=== PATIENT | male | born 1985 | race Caucasian/White ===

== ENCOUNTER 2016-09-30 13:21 | Emergency (ER) | payer BC, OTHER ==
[2016-09-30 14:08] VITALS: BP 129/84
--- NOTE | 2016-09-30 14:35 | UC ---
Knee Pain HPI - HPI Summary HPI Summary: 30 yo male injured left knee yesterday hyper extended it and twisted felt like patella dislocated and popped back in able to ambulate - History of Current Complaint Chief Complaint: UCUpperExtremity Stated Complaint: LEFT KNEE PAIN Time Seen by Provider: 09/30/16 14:24 Hx Obtained From: Patient Onset/Duration: Sudden Onset Severity Initially: Moderate Severity Currently: Moderate Location Of Injury: left knee Pain Intensity: 6 Pain Scale Used: 0-10 Numeric Character: Dull, Aching Aggravating Factor(s): Movement, Weight Bearing Alleviating Factor(s): Rest Associated Signs And Symptoms: Positive: Swelling Able to Bear Weight: Yes - Allergies/Home Medications Allergies/Adverse Reactions: Allergies Allergy/AdvReac Type Severity Reaction Status Date / Time Cefaclor [From [facility]] Allergy Unknown Unknown Verified 09/30/16 13:55 Reaction Details Home Medications: Home Medications Ibuprofen TAB* [Advil TAB*] 600 mg PO Q6H PRN 09/30/16 [History Confirmed ] Melatonin 3 mg PO BEDTIME PRN 09/30/16 [History Confirmed 09/30/16] hydrOXYzine HCL TAB* [Atarax 25 MG TAB*] 25 mg PO BEDTIME PRN 09/30/16 [History Confirmed 09/30/16] PMH/Surg Hx/FS Hx/Imm Hx Previously Healthy: Yes Endocrine History Of: Denies: Diabetes, Thyroid Disease, Hyperthyroidism, Hypothyroidism, Dyslipidemia Cardiovascular History Of: Denies: Cardiac Disorders, Hypertension, Pacemaker/ICD, Myocardial Infarction , Congestive Heart Failure, Atrial Fibrillation, Deep Vein Thrombosis, Bleeding Disorders Respiratory History Of: Denies: COPD, Asthma, Bronchitis, Pneumonia, Pulmonary Embolism GI/ History Of: Denies: Gastroesophageal Reflux, Ulcer, Gastrointestinal Bleed, Gall Bladder Disease, Kidney Stones, Diverticulitis, Renal Disease, Urosepsis Neurological History Of: Denies: TIA, CVA, Dementia, Seizures, Migraine Psychological History Of: Denies: Anxiety, Depression, Bipolar Disorder, Schizophrenia, Post Traumatic Stress Disorder Cancer History Of: Denies: Lung Cancer, Colorectal Cancer, Breast Cancer, Prostate Cancer, Cervical Cancer Other History Of: Negative For: HIV, Hepatitis B, Hepatitis C - Surgical History Surgical History: None Surgery Procedure, Year, and Place: wisdom teeth removal - Family History Known Family History: Negative: Cardiac Disease, Hypertension, Diabetes - Social History Alcohol Use: Occasionally Substance Use Type: None Smoking Status (MU): Never Smoked Tobacco Type: Smokeless Tobacco Amount Used/How Often: CHEWS Length of Time of Smoking/Using Tobacco: 10 YRS - Immunization History Most Recent Influenza Vaccination: Fall 2014 Most Recent Tetanus Shot: UNKNOWN Review of Systems Constitutional: Negative Skin: Negative Eyes: Negative ENT: Negative Respiratory: Negative Cardiovascular: Negative Gastrointestinal: Negative Genitourinary: Negative Motor: Negative Neurovascular: Negative Musculoskeletal: Arthralgia Neurological: Negative Psychological: Negative All Other Systems Reviewed And Are Negative: Yes Physical Exam Triage Information Reviewed: Yes Appearance: Well-Appearing, No Pain Distress, Well-Nourished Vital Signs: Initial Vital Signs Temp 98.5 F 09/30/16 13:45 Pulse 59 09/30/16 13:45 Resp 18 09/30/16 13:45 BP 129/84 09/30/16 13:45 Pulse Ox 100 09/30/16 13:45 Vital Signs Reviewed: Yes Eyes: Positive: Conjunctiva Clear ENT: Positive: Hearing grossly normal. Negative: Nasal congestion, Nasal drainage, Trismus, Muffled/hoarse voice Neck: Positive: Supple Respiratory: Positive: Lungs clear, Normal breath sounds, No respiratory distress Cardiovascular: Positive: RRR, No Murmur, Pulses Normal Musculoskeletal: Positive: Other: - see image Neurological: Positive: Alert, Muscle Tone Normal Psychological Exam: Normal Skin Exam: Normal Knee Pain Course/Dx - Differential Dx/Diagnosis Provider Diagnoses: left knee pain/injury. ? patellar dislocation vs other Discharge - Discharge Plan Condition: Stable Disposition: HOME Patient Education Materials: Patellar Dislocation (ED) Referrals: Cade Tom MD [Medical Doctor] - 1 Day Additional Instructions: knee immobilizer whe wt bearing ice twice daily ibuprofen if needed for pain Images Front/Back of Body, Lg ([place]): 1 - tender/stable joint/tender patellar tendon
--- NOTE | 2016-09-30 14:53 | RAD ---
Indication: Hyperextension injury; sensation of patellar dislocation. Anterior and lateral pain. Comparison: July 16, 2009 LEFT tibia and fibula Technique: LEFT knee: AP, tunnel, lateral, sunrise views. Report: Normal articular alignment and preserved joint spaces. Small suprapatellar joint effusion. Negative for fracture. Unremarkable soft tissue contours. IMPRESSION: Small joint effusion without additional finding.
== END 2016-09-30 15:27 | disposition home or self-care (01) ==
LOC: UCCORT 13:21
DX: S89.92XA Unspecified injury of left lower leg, initial encounter (principal); X50.1XXA Overexertion from prolonged static or awkward postures, initial encounter; Y93.9 Activity, unspecified; Y92.9 Unspecified place or not applicable; Z88.1 Allergy status to other antibiotic agents; F17.220 Nicotine dependence, chewing tobacco, uncomplicated
CPT/HCPCS: 99211; G0463

== ENCOUNTER 2017-08-31 10:27 | Emergency (ER) | payer BC ==
[2017-08-31 10:44] VITALS: BP 148/82
--- NOTE | 2017-08-31 10:57 | UC ---
[facility] HPI - HPI Summary HPI Summary: First complaint-blistering sores on left lower lip painful to touch has been there for over a week Second complaint-sore throat been going on for a few days body aches and fatigue Third complaint-esophageal burning seems to be worse when he drinks alcohol and eats certain foods - History of Current Complaint Chief Complaint: UCGeneralIllness Stated Complaint: ORAL COMPLAINT/ACID REFLUX/ST Time Seen by Provider: 08/31/17 10:46 Hx Obtained From: Patient Onset/Duration: Gradual Onset, Lasting Weeks Severity: Moderate Pain Intensity: 6 Pain Scale Used: 0-10 Numeric Alleviating Factor(s): Nothing - Allergies/Home Medications Allergies/Adverse Reactions: Allergies Allergy/AdvReac Type Severity Reaction Status Date / Time cefaclor [From [facility]] Allergy Unknown Verified 08/31/17 10:35 Reaction Details Home Medications: Home Medications Cetirizine* [ZyrTEC 10 MG TAB*] 10 mg PO DAILY PRN 08/31/17 [History Confirmed 08/31/17] diPHENhydraMINE PO* [Benadryl PO 25 MG TAB*] 25 mg PO BEDTIME PRN 08/31/17 [ History Confirmed 08/31/17] PMH/Surg Hx/FS Hx/Imm Hx Previously Healthy: No Psychological History: Post Traumatic Stress Disorder Other History Of: Negative For: HIV, Hepatitis B, Hepatitis C - Surgical History Surgical History: Yes Surgery Procedure, Year, and Place: wisdom teeth removal - Family History Known Family History: Negative: Cardiac Disease, Hypertension, Diabetes - Social History Occupation: Disabled Lives: Alone Alcohol Amount: 4-8 drinks 2-3 times a week Substance Use Type: None Smoking Status (MU): Current Some Day Smoker Type: Smokeless Tobacco Amount Used/How Often: CHEWS Length of Time of Smoking/Using Tobacco: 10 YRS Have You Smoked in the Last Year: Yes - chews - Immunization History Most Recent Influenza Vaccination: Fall 2014 Most Recent Tetanus Shot: UNKNOWN Review of Systems Constitutional: Chills, Fatigue Skin: Rash - on left lower lip Eyes: Negative ENT: Sore Throat Respiratory: Negative Cardiovascular: Negative Gastrointestinal: Abdominal Pain - Esophageal burning Genitourinary: Negative Motor: Negative Neurovascular: Negative Musculoskeletal: Negative Neurological: Negative Psychological: Negative Is Patient Immunocompromised?: No All Other Systems Reviewed And Are Negative: Yes Physical Exam Triage Information Reviewed: Yes Appearance: Well-Appearing, No Pain Distress, Well-Nourished Vital Signs: Initial Vital Signs Temp 99.8 F 08/31/17 10:38 Pulse 89 08/31/17 10:38 Resp 18 08/31/17 10:38 BP 148/82 08/31/17 10:38 Pulse Ox 100 08/31/17 10:38 Vital Signs Reviewed: Yes Eye Exam: Normal Eyes: Positive: Conjunctiva Clear ENT Exam: Normal ENT: Positive: Normal ENT inspection, Hearing grossly normal, Pharyngeal erythema, TMs normal, Uvula midline. Negative: Nasal congestion, Tonsillar swelling, Tonsillar exudate, Trismus, Muffled voice, Hoarse voice, Sinus tenderness Dental Exam: Normal Neck exam: Normal Neck: Positive: Supple, Nontender Respiratory Exam: Normal Respiratory: Positive: Chest non-tender, Lungs clear, Normal breath sounds, No respiratory distress, No accessory muscle use Cardiovascular Exam: Normal Cardiovascular: Positive: RRR, No Murmur, Pulses Normal, Brisk Capillary Refill Abdominal Exam: Other Abdomen Description: Positive: No Organomegaly, Soft, Other: - Esophageal pain alcohol and certain foods. Negative: CVA Tenderness (R), CVA Tenderness (L) Bowel Sounds: Positive: Present Musculoskeletal Exam: Normal Musculoskeletal: Positive: Strength Intact, ROM Intact, No Edema Neurological Exam: Normal Neurological: Positive: Alert, Muscle Tone Normal Psychological Exam: Normal Skin: Positive: rashes - rash on left lower lip Diagnostics - Laboratory Diagnostic Studies Completed/Ordered: Rapid strep negative. Viral swab obtained of lip Re-Evaluation - Re-Evaluation First Eval Change: Improved - Patient cut relief esophageal burning with GI cocktail Dental Complaint Course/Dx - Course Course Of Treatment: Begin Prilosec 40 mg by mouth daily at bedtime, culture lesions on lip, phenols sprays and throat lozenges for sore throat consider dietary changes in lifestyle modifications to help prevent gastritis follow with GI doctor PCP - Differential Dx/Diagnosis Provider Diagnoses: Elevated blood pressure without diagnosis of hypertension, alcohol abuse, nicotine addiction, gastritis, pharyngitis, questionable herpetic lesion on lower lip Discharge - Sign-Out/Discharge Documenting (check all that apply): Discharge - Discharge Plan Condition: Stable Disposition: HOME Prescriptions: Omeprazole CAP* [Prilosec CAP* 20 MG] 40 mg PO BEDTIME #60 cap. Patient Education Materials: Gastritis (ED), Diet for Stomach Ulcers and Gastritis (ED), At-Risk Alcohol Use (ED), Hypertension (ED), How to Quit Using Smokeless Tobacco (ED) Referrals: Reymundo Rivera MD [Medical Doctor] - As Soon As Possible Harvey Dyson DO [Primary Care Provider] - 1 Week - Billing Disposition and Condition Condition: STABLE Disposition: HOME
[2017-08-31] MEDS ORDERED: Lidocaine 2% VISCOUS* 15 ML UDC PO ONE (10:59)
[2017-08-31] MEDS ORDERED: Al Hydrox/Mg Hydrox/Simet LIQ* 30 ML UDC PO ONE (10:59)
== END 2017-08-31 11:53 | disposition home or self-care (01) ==
LOC: UCCORT 10:27
DX: J02.9 Acute pharyngitis, unspecified (principal); K29.70 Gastritis, unspecified, without bleeding; R03.0 Elevated blood-pressure reading, without diagnosis of hypertension; F10.10 Alcohol abuse, uncomplicated; F17.220 Nicotine dependence, chewing tobacco, uncomplicated; Z88.3 Allergy status to other anti-infective agents
CPT/HCPCS: 87529; 87651; 87798; 99212; A9270-GY; G0463

== ENCOUNTER 2017-10-15 10:51 | Emergency (ER) | payer BC ==
--- OUTSIDE RECORDS SUMMARY | 2017-10-15 11:01 | XMS REPORT ---
:1985 External Reference #:[id number] Author Organization [facility] Address [address] [address] Phone [phone] Care Team Providers Name Role Phone Harvey Dyson DO Care Team Information Manager Programs Unavailable Payers Type Date Identification Numbers Payment Provider Subscriber Commercial Policy Number: [id number] [facility] Commercial Salvador Cummins PayID: [id number] [address] [address] [place] [address] Workers Onset: 2015 Policy Number: [employer] Salvador Cummins Compensation [id number] Company PayID: [id number] [address] [place] [address] Workers Compensation Onset: 2015 Policy Number: WC/ Controverted Salvador Cummins [id number] PayID: [id number] Problems Description No Information Family History Date Family Member(s) Problem(s) Comments General Obesity Grandfather Diabetes, Adult Grandfather Heart Disease Grandmother Diabetes, Adult Grandmother Mental Illness Grandmother Kidney Disease Social History Type Date Description Comments Education Highest level completed, Associates Degree Marital Status Single 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 09/13/2015 Environmental active 09/13/2015 NKDA inactive Medications Medication Date Status Form Strength Qnty SIG Indications Ordering Provider ALL Day Allergy Active Tablets 10mg 30tabs 1 by Kiel, 018 mouth Harvey, every day DO otc Hydroxyzine HCL Active Tablets 25mg 30tabs /2- 1 Kiel, 017 pill by Harvey, mouth DO every 6 hours as needed for anxiety Ibuprofen Active Tablets 800mg Prn for Unknown 000 pain Excedrin Tension Active Tablets 500-65mg as needed Unknown Headache 000 Citalopram Hx Tablets 20mg 30tabs 2 by Kiel, Hydrobromide 017 - mouth Harvey, every day DO 017 Citalopram Hx Tablets 20mg 30tabs 05/13 by Kiel, Hydrobromide 016 - mouth Harvey, every day DO 017 Citalopram Hx Tablets 10mg 30tabs 1 by Kiel, Hydrobromide 016 - mouth Harvey, every day DO 016 Ciprofloxacin Hx Tablets 250mg 14tabs 1 by R30.0 Kiel, HCL 016 - mouth Harvey, twice a DO 016 day Protein Hx Powder 1 shake Kiel, 016 - prior to Harvey, work DO 016 out/post workout Branched Chains Hx Powder 1 tbsp Kiel Amino Acids 016 - Mixed In [facility], Water DO 016 Daily. Sulfamethoxazole Hx Tablets 800-160mg 1 by Unknown /Trimethoprim DS 000 - mouth every 12 016 hours Immunizations CPT Code Status Date Vaccine Lot # [id number] Given 02/21/2017 Afluria Or Fluvirin Flu Vac Intramuscular Q2035 Given 03/18/2016 Afluria Imunization 94515 Given 09/13/2015 Tdap (Adacel) Ages 7 And Above Only [id number] Vital Signs Date Vital Result Comment 09/17/2017 Weight 235.00 lb Heart Rate 76 /min BP Systolic 110 mmHg BP Diastolic 70 mmHg Respiratory Rate 18 /min Height 68.50 inches 5'8.50" 06/18/17 BMI (Body Mass Index) 35.2 kg/m2 06/18/2017 Weight 227.00 lb Heart Rate 72 /min BP Systolic 132 mmHg BP Diastolic 80 mmHg Respiratory Rate 18 /min Height 68.50 inches 5'8.50" 06/18/17 BMI (Body Mass Index) 34.0 kg/m2 04/15/2017 Weight 222.00 lb Heart Rate 76 /min BP Systolic 150 mmHg BP Diastolic 78 mmHg BP Systolic Recheck 130 mmHg BP Diastolic Recheck 76 mmHg Respiratory Rate 18 /min O2 % BldC Oximetry 98 % 01/31/2017 Body Temperature 98.0 F Weight 215.00 lb Heart Rate 76 /min BP Systolic 140 mmHg BP Diastolic 82 mmHg Respiratory Rate 18 /min Height 68.5 inches 5'8.50" BMI (Body Mass Index) 32.2 kg/m2 10/24/2016 Weight 211.00 lb Heart Rate 72 /min BP Systolic 138 mmHg BP Diastolic 80 mmHg Respiratory Rate 18 /min Height 68.5 inches 5'8.50" BMI (Body Mass Index) 31.6 kg/m2 08/02/2016 Weight 205.00 lb Heart Rate 72 /min BP Systolic 140 mmHg BP Diastolic 70 mmHg Respiratory Rate 18 /min Height 68.5 inches 5'8.50" BMI (Body Mass Index) 30.7 kg/m2 06/12/2016 Weight 198.00 lb Heart Rate 64 /min BP Systolic 130 mmHg BP Diastolic 74 mmHg Respiratory Rate 17 /min Height 68.5 inches 5'8.50" BMI (Body Mass Index) 29.7 kg/m2 04/25/2016 Weight 195.00 lb Heart Rate 60 /min BP Systolic 134 mmHg BP Diastolic 70 mmHg Respiratory Rate 14 /min Height 68.5 inches 5'8.50" 04/25/16 SA O2 % BldC Oximetry 98 % On room air BMI (Body Mass Index) 29.2 kg/m2 04/12/2016 Weight 200.00 lb Heart Rate 76 /min BP Systolic 118 mmHg BP Diastolic 70 mmHg Respiratory Rate 18 /min Height 69 inches 5'9" BMI (Body Mass Index) 29.5 kg/m2 03/15/2016 Weight 198.00 lb Heart Rate 72 /min BP Systolic 130 mmHg BP Diastolic 78 mmHg Respiratory Rate 18 /min Height 69 inches 5'9" BMI (Body Mass Index) 29.2 kg/m2 02/16/2016 Weight 194.00 lb Heart Rate 74 /min BP Systolic 120 mmHg BP Diastolic 80 mmHg Respiratory Rate 18 /min Height 69 inches 5'9" BMI (Body Mass Index) 28.6 kg/m2 01/26/2016 Weight 193.00 lb Heart Rate 68 /min BP Systolic 124 mmHg BP Diastolic 80 mmHg Respiratory Rate 12 /min Height 69 inches 5'9" BMI (Body Mass Index) 28.5 kg/m2 01/11/2016 Weight 194.00 lb Heart Rate 74 /min BP Systolic 120 mmHg BP Diastolic 80 mmHg Respiratory Rate 18 /min Height 69 inches 5'9" BMI (Body Mass Index) 28.6 kg/m2 11/30/2015 Body Temperature 98.6 F Weight 192.00 lb Heart Rate 72 /min BP Systolic 144 mmHg BP Diastolic 78 mmHg Respiratory Rate 12 /min Height 69 inches 5'9" BMI (Body Mass Index) 28.4 kg/m2 10/13/2015 Weight 196.00 lb Heart Rate 76 /min BP Systolic 130 mmHg BP Diastolic 80 mmHg Respiratory Rate 18 /min Height 69 inches 5'9" BMI (Body Mass Index) 28.9 kg/m2 09/13/2015 Weight 200.00 lb Heart Rate 78 /min BP Systolic 128 mmHg BP Diastolic 70 mmHg Respiratory Rate 18 /min Height 69 inches 5'9" BMI (Body Mass Index) 29.5 kg/m2 Results Test Date Test Result H/L Range Note CBC With Auto Diff 04/15/2017 WBC 7.7 K/uL 4.1-11.0 RBC 5.41 M/uL 4.60-6.10 Hemoglobin 16.1 gm/dL 13.5-18.0 Hematocrit 47.5 % 41.0-53.0 MCV 87.9 fL 80.0-97.0 MCH 29.8 pg 27.0-32.0 MCHC 33.8 g/dL 32.0-36.0 RDW 12.6 % 11.5-14.5 PLT Count 157 K/ul 140-400 MPV 10.3 FL 7.1-10.7 Neutrophil 74.4 % 35.0-75.0 Lymphocyte 17.4 % 16.0-52.0 Monocyte 7.5 % 2.0-10.0 Eosinophil 0.1 % 0.0-5.0 Basophil 0.6 % 0.0-4.0 Abs Neutrophils 5.7 K/uL 2.1-8.0 Abs Lymphocytes 1.3 K/uL 0.8-5.5 Abs Monocytes 0.6 K/uL 0.1-1.0 Abs Eosinophils 0.0 K/uL 0.0-0.5 Abs Basophils 0.0 K/uL 0.0-0.3 Lipid 04/15/2017 Cholesterol 188 mg/dL 50-199 Triglycerides 61 mg/dL 30-200 HDL 45 mg/dL 29-71 1 Chol/ HDL Ratio 4.2 ratio 4.0-6.7 VLDL 12 mg/dL 2-29 LDL (Calc) 131 mg/dL High 20-99 2 Laboratory test finding 04/15/2017 TSH 1.40 uIU/mL 0.35-4.94 Vitamin B12 296 pg/mL 180-914 Hemoglobin A1c 04/15/2017 Hemoglobin A1c 5.1 % 4.1-5.9 Estimated Average Glucose Calc 100 71-140 Comprehensive Met Panel-FCMG 04/15/2017 Sodium 143 mmol/L 135-146 3 Potassium 4.5 mmol/L 3.5-5.2 Chloride# 104 mmol/L 97-110 4 Carbon Dioxide 29 mmol/L 24-34 Glucose 91 mg/dL 70-105 Creatinine 1.0 mg/dL 0.5-1.4 Calcium 10.0 mg/dL 8.5-10.2 Total Protein 7.0 g/dL 6.0-8.0 Albumin 4.9 g/dL 3.6-4.9 Globulin 2.1 g/dL 2.0-3.5 A/G Ratio 2.3 Ratio High 1.0-2.2 Total Bilirubin 1.0 mg/dL 0.1-1.3 Alkaline Phosphatase 40 U/L 24-140 Alt 25 U/L 3-42 Ast 17 U/L 8-42 Annel Egfr >60 >60 5 Non Annel Egfr >60 >60 6 Anion Gap 10 mmol/L 7-16 7 BUN 12 mg/dL 6-26 Urine Screen 11/29/2015 Ua RFX Micro + Culture II See Note 8 Urinalysis With Microscopic 11/29/2015 Urine Color YELLOW Yellow Urine Clarity CLEAR Clear Urine Glucose - Dipstick NEGATIVE mg/dL Negative Urine Bilirubin - Dipstick NEGATIVE Negative Urine Ketone NEGATIVE mg/dL Negative Urine Specific [place] 1.020 1.010-1.030 Urine Blood SMALL High Negative Urine PH 6.0 Low 6.5-7.5 Urine Protein - Dipstick NEGATIVE mg/dL Negative Urine Urobilinogen - Dipstick 0.2 E.U./dL 0.2-1.0 Urine Nitrite - Dipstick NEGATIVE Negative Urine Leuk Esterase NEGATIVE Negative Urine RBC 2-5 rbc/hpf 0-2 Urine WBC 0-2 wbc/hpf 0-7 Urine Epithelial Cells VERY FEW NONESEEN/lpf Urine Bacteria FEW NONESEEN Urine Mucus VERY FEW NONESEEN Urine Sperm VERY FEW NONESEEN Laboratory test 11/23/2015 Lyme Igm/Igg AB NEGATIVE (Neg) 9 finding Laboratory test 10/13/2015 Cytology Fluid SEE NOTE 10 finding Specimen Laboratory test 10/13/2015 Urine Culture Microbiology res 11 finding <SEE NOTE> CBC With Auto Diff 09/18/2015 WBC 4.2 K/uL 4.1-11.0 12 RBC 4.86 M/uL 4.60-6.10 12 Hemoglobin 14.9 gm/dL 13.5-18.0 12 Hematocrit 44.4 % 41.0-53.0 12 MCV 91.3 fL 80.0-97.0 12 MCH 30.7 pg 27.0-32.0 12 MCHC 33.6 g/dL 32.0-36.0 12 RDW 13.8 % 11.5-14.5 12 PLT Count 136 K/ul Low 140-400 12 Neutrophil 54.6 % 35.0-75.0 12 Lymphocyte 26.7 % 16.0-52.0 12 Monocyte 15.2 % High 2.0-10.0 12 Eosinophil 2.7 % 0.0-5.0 12 Basophil 0.8 % 0.0-4.0 12 Abs Neutrophils 2.3 K/uL 2.1-8.0 12 Abs Lymphocytes 1.1 K/uL 0.8-5.5 12 Abs Monocytes 0.6 K/uL 0.1-1.0 12 Abs Eosinophils 0.1 K/uL 0.0-0.5 12 Abs Basophils 0.0 K/uL 0.0-0.3 12 Comprehensive Metabolic (CMP) 09/18/2015 Sodium 138 mmol/L 134-142 12 Potassium 4.7 mmol/L 3.5-5.2 12 Chloride 104 mmol/L 97-109 12 Carbon Dioxide 29 mmol/L 24-34 12 Glucose 88 mg/dL 70-105 12 BUN 15 mg/dL 6-26 12 Creatinine 0.9 mg/dL 0.5-1.4 12 Calcium 9.3 mg/dL 8.5-10.2 12 Total Protein 6.7 g/dL 6.0-8.0 12 Albumin 4.2 g/dL 3.6-4.9 12 Globulin 2.5 g/dL 2.0-3.5 12 A/G Ratio 1.7 Ratio 1.0-2.2 12 Total Bilirubin 1.5 mg/dL High 0.1-1.3 12 Alkaline Phosphatase 34 U/L 24-140 12 Alt 17 U/L 3-42 12 Ast 22 U/L 8-42 12 Anion Gap 10 mmol/L 6-14 12 Annel Egfr >60 >60 12, 13 Non Annel Egfr >60 >60 12, 14 Laboratory test finding 09/18/2015 PSA 0.630 ng/mL 0.000-4.000 12, 15 HIV Combo NON REACTIVE Non Reactive 12 Lipid 09/18/2015 Cholesterol 155 mg/dL 50-199 12 Triglycerides 61 mg/dL 30-200 12 HDL 53 mg/dL 29-71 12, 16 Chol/ HDL Ratio 2.9 ratio Low 4.0-6.7 12 VLDL 12 mg/dL 2-29 12 LDL (Calc) 90 mg/dL 20-99 12, 17 Laboratory test finding 09/18/2015 Treponema Igg/Igm NEGATIVE (Neg) 12, 18 1 Per NCEP ATP III Guidelines: Results lower than 40 mg/dL are suggestive of increased risk for coronary artery disease. Results > or=to 60 mg/dL are considered a negative risk factor. 2 Per NCEP ATP III Guidelines: Normal Population <130 Patients with medical conditions: CHD/DM Optimal: <100 Borderline high: 130-159 High: 160-189 Very high: >189 3 Updated reference range on new analyzer 4 Updated reference range on new analyzer 5 Concerning GFR Guidelines for Americans: Normal function or mild renal disease, if clinically at risk: >/=60 mL/min Moderately decreased: 30-59 Severely decreased: 15-29 Renal failure: <15 6 Concerning GFR Guidelines: Normal function or mild renal disease, if clinically at risk: >/=60 mL/min Moderately decreased: 30-59 Severely decreased: 15-29 Renal failure: <15 Glomerular Filtration Rate (GFR) is estimated based on the MDRD equation, which assumes a steady state for creatinine as recommended by the National Kidney Disease Education Program in conjunction with the National Institutes of Health and the National Kidney Foundation. Clinical conditions in which it may be necessary to measure GFR by using clearance methods include extremes of age and body size, severe malnutrition or obesity, diseases of skeletal muscle, paraplegia or quadriplegia, vegetarian diet, rapidly changing kidney function, and calculation of the dose of potentially toxic drugs that are excreted by the kidneys. 7 Updated reference range on new analyzer 8 11/29/15 LAB.TOW Deleted by [facility] 9 A Negative serologic test for Lyme Disease indicates no serologic evidence of infection with B burgdorferi at the time this specimen was collected. A repeat specimen should be collected in 2 to 4 weeks if clinically indicated. Unless otherwise specified, testing performed by [facility] [address] [address] [address] [employer] [facility]. [address] [place] [address] MISCELLANEOUS CYTOLOGY REPORT Accession Number: [id number] Source of Specimen(s): A: Urine, Voided Clinical Diagnosis and History: Microhematuria Gross Description: Urine, Voided: 30 cc cloudy yellow fluid. Final Diagnosis: Specimen Adequacy Satisfactory Final Diagnosis NEGATIVE FOR HIGH-GRADE UROTHELIAL CARCINOMA. Scant cellularity with scattered erythrocytes present. As applicable, positive and negative controls for all immunohistochemical and/or special stains were reviewed and considered appropriate. Reported: 10/16/2015 Electronically Signed Out By Jr Bradley MD Enforcement Safety Officer: Jeny CHRISTIAN(ASCP) [facility] Unless otherwise specified, testing performed by [facility] [address] [address] 11 Microbiology results SOURCE URINE FINAL RESULT No growth 12 This sample is drawn by:[facility] pt verified labels and initialed test tubes 13 Concerning GFR Guidelines for Americans: Normal function or mild renal disease, if clinically at risk: >/=60 mL/min Moderately decreased: 30-59 Severely decreased: 15-29 Renal failure: <15 14 Concerning GFR Guidelines: Normal function or mild renal disease, if clinically at risk: >/=60 mL/min Moderately decreased: 30-59 Severely decreased: 15-29 Renal failure: <15 Glomerular Filtration Rate (GFR) is estimated based on the MDRD equation, which assumes a steady state for creatinine as recommended by the National Kidney Disease Education Program in conjunction with the National Institutes of Health and the National Kidney Foundation. Clinical conditions in which it may be necessary to measure GFR by using clearance methods include extremes of age and body size, severe malnutrition or obesity, diseases of skeletal muscle, paraplegia or quadriplegia, vegetarian diet, rapidly changing kidney function, and calculation of the dose of potentially toxic drugs that are excreted by the kidneys. 15 Beginning 07/07/06 PSA values assayed at [facility] uses chemiluminescence methodology manufactured by [employer] for use on the DXI analyzer. Values obtained with different assay methods or kits can not be used interchangeably. Serum PSA measurement is not an absolute test for malignancy. The PSA value should be used in conjunction with information available from clinical evaluation and other diagnostic procedures. 16 Per NCEP ATP III Guidelines: Results lower than 40 mg/dL are suggestive of increased risk for coronary artery disease. Results > or=to 60 mg/dL are considered a negative risk factor. 17 Per NCEP ATP III Guidelines: Normal Population <130 Patients with medical conditions: CHD/DM Optimal: <100 Borderline high: 130-159 High: 160-189 Very high: >189 18 Unless otherwise specified, testing performed by [facility] [address] [place] [address] Procedures Date CPT Code Description Status Comment 04/15/2017 68671 Measure Blood Oxygen Level Completed Single Determination 04/15/2017 53442 PFT W/O Bronchodilator Completed 04/15/2017 90489 Spirometry /PFT W/O Completed Bronchodialator 04/15/2017 64658 Electrocardiogram Complete Completed 04/15/2017 90783 Screening Hearing Test Completed 04/25/2016 99691 Visual Screening Test Completed 04/25/2016 75268 Measure Blood Oxygen Level Completed Single Determination 04/25/2016 56144 Electrocardiogram Complete Completed 04/25/2016 53123 Screening Hearing Test Completed 04/25/2016 11047 X-Ray Chest Two Views Frontal Completed & Lateral 02/09/2016 Colonoscopy Completed Document: 02/09/16 - Colonoscopy Op Report 12/01/2015 74002 Cat Scan Abdomen & Pelvis Completed W/O Constrast Encounters Type Date Location Provider CPT E/M Dx Office Visit 06/18/2017 8:15[place] [address] F43.10 F43.0 G47.00 R51 R53.83 Office Visit 04/15/2017 1:00p [place] [address] Z00.00 R51 F43.10 R20.9 Office Visit 01/31/2017 8:00[place] [address] F43.10 F43.0 G47.00 R51 Office Visit 10/24/2016 8:45[place] [address] F43.10 F43.0 G47.00 Office Visit 08/02/2016 8:30[place] [address] F43.10 F43.0 G47.00 Office Visit 06/12/2016 9:45[place] [address] F43.10 F43.0 G47.00 Office Visit 04/25/2016 1:30[place] [address] Z00.00 R51 F43.10 F43.0 Office Visit 04/12/2016 8:45[place] [address] F43.10 F43.10 F43.0 F43.0 Office Visit 03/15/2016 9:45[place] [address] F43.0 Office Visit 02/16/2016 2:07p [place] [address] K62.89 Office Visit 02/16/2016 8:00[place] [address] F43.0 Office Visit 01/26/2016 9:45[place] [address] F43.0 Office Visit 01/11/2016 8:00[place] [address] F43.0 Office Visit 11/30/2015 11:00[place] [address] N41.0 R30.0 Z12.11 Office Visit 10/13/2015 3:00[place] [address] R31.9 R30.0 Office Visit 09/13/2015 2:00p [place] [address] Z00.00 Z23 Z12.5 Z12.11 Z11.4 Z11.3 K62.89 R04.0 F17.220 Plan of Care Future Appointment(s):12/15/2017 1:15 pm - Harvey D[facility] DO at [facility]09/17/2017 - Harvey Dyson DOF43.10 Post-traumatic stress disorder, unspecifiedFollow up: Follow up in 3 swvyoeV87.35 Body mass index (BMI) 35.0-35.9, cyscfF91.0 Acute stress fsakhexgO69.00 Insomnia, [id number] QpeshrumF18.83 Other fatigue
--- NOTE | 2017-10-15 11:02 | UC ---
Skin Complaint HPI - HPI Summary HPI Summary: 32 y/o male presents to the urgent care c/o tick bite on his medial side of the left thigh he noticed this morning. Pt removed tick about 2 hrs ago. Tick is not engorged. He thinks he got it last night when he was mowing the grass last night. He states Hx of Tick bite last years w/o any prophylactic treatment. Pt denies fever, SOB, chest pain, palpitations, abdominal pain, joint pains, AGRAWAL, N/ V/D. - History of Current Complaint Time Seen by Provider: 10/15/17 10:59 Stated Complaint: TICK Hx Obtained From: Patient Onset/Duration: Sudden Onset, Lasting Days - 1 day, Resolved - pt removed tick, Worse Since - today Skin Exposure Onset/Duration: Days Ago - 1 day Timing: Constant Onset Severity: Mild Current Severity: Mild Pain Intensity: 0 Pain Scale Used: 0-10 Numeric Location: Discrete - medial aspect of the upper thigh Character: Pruritus, Redness Aggravating Factor(s): Touch Alleviating Factor(s): OTC Creams/Salves Associated Signs & Symptoms: Positive: Rash. Negative: Fever, Chills, Drainage , Tenderness Related History: Possible Reaction to: Insect - Allergy/Home Medications Allergies/Adverse Reactions: Allergies Allergy/AdvReac Type Severity Reaction Status Date / Time [facility] Allergy Unknown Verified 08/31/17 10:35 Reaction Details Review of Systems Constitutional: Negative Skin: Rash - medial aspect of proximal thigh w/ a tick bite Eyes: Negative ENT: Negative Respiratory: Negative Cardiovascular: Negative Gastrointestinal: Negative Genitourinary: Negative Motor: Negative Neurovascular: Negative Musculoskeletal: Negative Neurological: Negative Psychological: Negative Is Patient Immunocompromised?: No All Other Systems Reviewed And Are Negative: Yes PMH/Surg Hx/FS Hx/Imm Hx Previously Healthy: Yes Psychological History: Anxiety, Post Traumatic Stress Disorder Other History Of: Negative For: HIV, Hepatitis B, Hepatitis C - Surgical History Surgical History: Yes Surgery Procedure, Year, and Place: wisdom teeth removal - Family History Known Family History: Positive: Cardiac Disease, Hypertension, Diabetes - Social History Occupation: Employed Full-time Lives: With Family Alcohol Use: Occasionally Alcohol Amount: 4-8 drinks 2-3 times a week Substance Use Type: None Smoking Status (MU): Current Some Day Smoker Type: Smokeless Tobacco Amount Used/How Often: CHEWS Length of Time of Smoking/Using Tobacco: 10 YRS Have You Smoked in the Last Year: Yes - chews - Immunization History Most Recent Influenza Vaccination: Fall 2014 Most Recent Tetanus Shot: UNKNOWN Physical Exam - Summary Physical Exam Summary: Vital Signs Reviewed: Yes General: well developed, well nourished male sitting in the examining table w/o any apparent distress. Eyes: Positive: Conjunctiva Clear - PERRLA, EOMI ENT: Positive: Normal ENT inspection, Hearing grossly normal, Pharynx normal, TMs normal Neck: Positive: Supple, Nontender, No Lymphadenopathy Respiratory: Positive: Chest nontender, Lungs clear, Normal breath sounds Cardiovascular: Positive: RRR, No Murmur, Pulses Normal Abdomen Description: Positive: Nontender, No Organomegaly, Soft. Negative: CVA Tenderness (R), CVA Tenderness (L) Bowel Sounds: Positive: Present Musculoskeletal: Positive: Strength Intact, ROM Intact, No Edema Neurological Exam: Normal Psychological Exam: Normal Skin: Positive: rashes - Proximal medial aspect of Left upper thigh with tick bite with surrounding erythema, non tender to palpation. tick no longer present , no swelling or drainage observed. Triage Information Reviewed: Yes Course/Dx - Course Course Of Treatment: 32 y/o male presents to the urgent care c/o tick bite on his medial side of the left thigh he noticed this morning. Pt removed tick about 2 hrs ago. Tick is not engorged. He thinks he got it last night when he was mowing the grass last night. He states Hx of Tick bite last years w/o any prophylactic treatment. Pt denies fever, SOB, chest pain, palpitations, abdominal pain, joint pains, AGRAWAL, N/V/D.Hx obtained. Pt w/Proximal medial aspect of Left upper thigh with tick bite with surrounding erythema, non tender to palpation. tick no longer present, no swelling or drainage observed On examination. Tick bite area cleaned and bacitracin ointment applied. Antibiotic prophylaxis with Doxycycline given to the patient to prevent lyme Disease.. Pt tolerated well medication. Pt advised to observe the area for the development or Erythema Migrans for upto 30 days following exposure. Advised if he develops fever or erythema Migrans to return to the clinic or PCP for further treatment .Pt understood and agreed with plan of care. - Differential Diagnoses - Skin Complaint Differential Diagnoses: Abscess, Cellulitis, Contact Dermatitis, Tick Born Illness, Other - insect bite, bee sting - Diagnoses Provider Diagnoses: 1- Poximal medial aspect of left thigh tick bite Discharge - Sign-Out/Discharge Documenting (check all that apply): Discharge/Admit/Transfer - D/C home - Discharge Plan Condition: Stable Disposition: HOME Patient Education Materials: Tick Bite (ED) Referrals: Harvey Dyson DO [Primary Care Provider] - 2 Weeks Poly CONTE,Christian Schumacher [Medical Doctor] - If Needed Additional Instructions: 1- Please observe the area for the development or Erythema Migrans (bull's eye) for up to 30 days following exposure. Components of the tick saliva can cause transient erythema that should not be confused with Erythema Migrans. If you develop the bull's eye rash, fever, joint pains please return to the urgent care or f/u with your PCP for further management. 2-Antibiotic prophylaxis with Doxycycline was given to you today to prevent Lyme Disease. Lyme serology can be drawn in 2 weeks with your PCP to r/o Lyme disease since there is probability of negative results at early exposure. - Billing Disposition and Condition Condition: STABLE Disposition: Home
[2017-10-15 11:08] VITALS: BP 138/78
[2017-10-15] MEDS ORDERED: DOXYcycline CAP(*) 100 MG PO ONE (11:21)
== END 2017-10-15 11:36 | disposition home or self-care (01) ==
LOC: UCCORT 10:51
DX: S70.362A Insect bite (nonvenomous), left thigh, initial encounter (principal); W57.XXXA Bitten or stung by nonvenomous insect and other nonvenomous arthropods, initial encounter; Y93.9 Activity, unspecified; Y92.9 Unspecified place or not applicable; Z88.1 Allergy status to other antibiotic agents; F17.210 Nicotine dependence, cigarettes, uncomplicated
CPT/HCPCS: 99212; A9270-GY; G0463

== ENCOUNTER 2019-04-28 10:53 | Emergency (ER) | payer BC ==
--- OUTSIDE RECORDS SUMMARY | 2019-04-28 11:00 | XMS REPORT | Continuity of Care Document ---
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 09/13/2015 Environmental 09/13/2015 Inactive Allergies NKDA 09/13/2015 Medications Active Medications SIG Qnty Indications Ordering Provider Date Trazodone HCL take 1 tablet by 30tabs Harvey Dyson, 02/19/2019 100mg mouth every night DO Tablets at bedtime ALL Day Allergy 1 by mouth every 30tabs Harvey Dyson, 06/18/2017 10mg day otc DO Tablets Hydroxyzine HCL 1/2- 1 pill by 30tabs Harvey Dyson, 06/12/2016 25mg mouth every 6 DO Tablets hours as needed for anxiety Ibuprofen Prn for pain Unknown 800mg Tablets Excedrin Tension as needed Unknown Headache 500-65mg Tablets History Medications Trazodone HCL take one tablet by 30tabs Harvey Dyson DO 01/07/2019 - 50mg mouth at bedtime 02/19/2019 Tablets Immunizations CPT Code Status Date Vaccine Lot # [id number] Given 02/13/2019 Influenza Virus Vaccine,Quadrivalent,Split,Preserv Free, 0.5mL,Im Q2039 Given 03/09/2018 Flu Vaccine NOS [id number] Given 02/21/2017 Afluria Or Fluvirin Flu Vac Intramuscular Q2035 Given 03/18/2016 Afluria Imunization [id number] Given 09/13/2015 Tdap (Adacel) Ages 7 And Above Only [id number] Refused 03/04/2018 Afluria Imunization Vital Signs Date Vital Result Comment 03/26/2019 1:50pm Weight 234.00 lb Heart Rate 60 /min BP Systolic 116 mmHg BP Diastolic 78 mmHg Respiratory Rate 16 /min Height 68.50 inches 5'8.50" 06/18/17 BMI (Body Mass Index) 35.1 kg/m2 02/19/2019 1:52pm Weight 235.00 lb Heart Rate 80 /min BP Systolic 138 mmHg BP Diastolic 82 mmHg Respiratory Rate 18 /min Height 68.50 inches 5'8.50" 06/18/17 BMI (Body Mass Index) 35.2 kg/m2 Results Test Acquired Date Facility Test Result H/L Range Note CBC With Auto Diff 02/19/2019 [facility] WBC 7.3 K/uL 4.1-11.0 RBC 5.26 M/uL 4.60-6.10 Hemoglobin 16.1 gm/dL 13.5-18.0 Hematocrit 46.6 % 41.0-53.0 MCV 88.7 fL 80.0-97.0 MCH 30.7 pg 27.0-32.0 MCHC 34.6 g/dL 32.0-36.0 RDW 12.6 % 11.5-14.5 PLT Count 162 K/ul 140-400 MPV 10.6 FL 7.1-10.7 Neutrophil 60.0 % 35.0-75.0 Lymphocyte 28.0 % 16.0-52.0 Monocyte 10.6 % High 2.0-10.0 Eosinophil 0.7 % 0.0-5.0 Basophil 0.7 % 0.0-4.0 Abs Neutrophils 4.4 K/uL 2.1-8.0 Abs Lymphocytes 2.0 K/uL 0.8-5.5 Abs Monocytes 0.8 K/uL 0.1-1.0 Abs Eosinophils 0.1 K/uL 0.0-0.5 Abs Basophils 0.1 K/uL 0.0-0.3 Laboratory test finding 02/19/2019 [facility] TSH 0.80 uIU/mL 0.35-4.94 Vitamin B12 298 pg/mL 180-914 Hemoglobin A1c 02/19/2019 [facility] Hemoglobin A1c 5.5 % 4.1-5.9 Estimated Average Glucose Calc 111 mg/dL 71-140 Comprehensive Met Panel-[facility] 02/19/2019 [facility] Sodium 143 mmol/L 135- 146 1 Potassium 4.4 mmol/L 3.5-5.2 Chloride# 105 mmol/L 97-110 2 Carbon Dioxide 27 mmol/L 24-34 Calcium 9.7 mg/dL 8.5-10.5 3 Glucose 79 mg/dL 70-105 BUN 15 mg/dL 6-26 Creatinine 1.1 mg/dL 0.5-1.4 Total Protein 6.8 g/dL 6.0-8.0 Albumin 4.6 g/dL 3.6-4.9 Globulin 2.2 g/dL 2.0-3.5 A/G Ratio 2.1 Ratio 1.0-2.2 Total Bilirubin 0.5 mg/dL 0.1-1.3 Alkaline Phosphatase 45 U/L 24-140 Alt 25 U/L 3-42 Ast 17 U/L 8-42 Anion Gap 11 mmol/L 5-15 4 Female Egfr 67 >60 5 Male Egfr 89 >60 6 1 Updated reference range on new analyzer 2 Updated reference range on new analyzer 3 Updated reference range 09-09-2018 4 Updated Reference Range 5 Concerning GFR Guidelines for Americans: Normal function or mild renal disease, if clinically at risk: >/= 60 mL/min Moderately decreased: 30-59 Severely decreased: 15-29 Renal failure: <15 There is reduced accuracy above 60ml/min/1.73 m squared, but the numeric value may be clinically useful in the near 60 range 6 Concerning GFR Guidelines: Normal function or mild renal disease, if clinically at risk: >/= 60 mL/min Moderately decreased: 30-59 Severely decreased: 15-29 Renal failure: <15 There is reduced accuracy above 60ml/min/1.73 m squared, but the numeric value may be clinically useful in the near 60 range Glomerular Filtration Rate (GFR) is estimated based on the CKD-EPI equation, which assumes a steady state for [...] drugs that are excreted by the kidneys. Procedures Date Code Description Status 01/07/2019 24111 Brief Emotional/Behav Assessment W/ Scoring Doc Per Completed Standard Inst 02/09/2016 09753236 Colonoscopy Completed Medical Devices Description No Information Available Encounters Type Date Location Provider Dx Diagnosis Office Visit 01/27/2019 Harvey Lovell DO F43.10 Post-traumatic stress 3:15p disorder, unspecified E66.9 Obesity, unspecified F43.0 Acute stress reaction Z68.34 Body mass index (BMI) 34.0-34.9, adult R51 Headache G47.00 Insomnia, unspecified R53.83 Other fatigue F10.20 Alcohol dependence, uncomplicated F32.1 Major depressive disorder, single episode, moderate Office Visit 01/07/2019 1:00p [facility] Harvey Dyson DO F43.10 Post- traumatic stress disorder, unspecified F43.0 Acute stress reaction E66.9 Obesity, unspecified R51 Headache G47.00 Insomnia, unspecified Z68.35 Body mass index (BMI) 35.0-35.9, adult F10.20 Alcohol dependence, uncomplicated F32.1 Major depressive disorder, single episode, moderate Office Visit 11/26/2018 1:15p Harvey Lovell DO F43.10 Post- traumatic stress disorder, unspecified E66.9 Obesity, unspecified F43.0 Acute stress reaction Z68.34 Body mass index (BMI) 34.0-34.9, adult R51 Headache G47.00 Insomnia, unspecified R53.83 Other fatigue F10.20 Alcohol dependence, uncomplicated F32.1 Major depressive disorder, single episode, moderate Assessments Date Code Description Provider 03/26/2019 F43.10 Post-traumatic stress disorder, unspecified Harvey Dyson DO 03/26/2019 F43.0 Acute stress reaction Harvey Dyson DO 03/26/2019 E66.9 Obesity, unspecified Harvey Dyson DO 03/26/2019 G47.00 Insomnia, unspecHarvey Sales DO 03/26/2019 R53.83 Other fatigue DysonHarvey elena, DO 03/26/2019 Z68.35 Body mass index (BMI) 35.0-35.9, adult DysonHarvey elena, DO 03/26/2019 F10.20 Alcohol dependence, uncomplicated DysonHarvey, DO 03/26/2019 F32.1 Major depressive disorder, single episode, Dyson, Harvey, DO moderate 03/26/2019 G44.209 Tension-type headache, unspecified, not DysonHarvey, DO intractable 02/19/2019 Z79.899 Other [facility] (current) drug therapy [facility] 02/19/2019 Z00.00 Encounter for general adult medical Harvey Dyson, DO examination without abnormal findings 02/19/2019 Z00.00 Encounter for general adult medical [facility] examination without abnormal findings 02/19/2019 F43.10 Post-traumatic stress disorder, unspecified DysonHarvey elena , DO 02/19/2019 R20.9 Unspecified disturbances of skin sensation Harvey Dyson, DO 02/19/2019 R20.9 Unspecified disturbances of skin sensation [facility] 02/19/2019 E66.9 Obesity, unspecified DysonHarvey, DO 02/19/2019 F43.0 Acute stress reaction Harvey Dyson, DO 02/19/2019 Z68.35 Body mass index (BMI) 35.0-35.9, adult Harvey yDson, DO 02/19/2019 G47.00 Insomnia, unspecified DysonHarvey, DO 02/19/2019 R53.83 Other fatigue DysonHarvey elena, DO 02/19/2019 F10.20 Alcohol dependence, uncomplicated DysonHarvey, DO 02/19/2019 F32.1 Major depressive disorder, single episode, DysonHarvey, DO moderate 02/19/2019 Z00.00 Encounter for general adult medical Schedule, Laboratory examination without abnormal findings 02/19/2019 R20.9 Unspecified disturbances of skin sensation Schedule, Laboratory 01/27/2019 F43.10 Post-traumatic stress disorder, unspecified DysonHarvey , DO 01/27/2019 E66.9 Obesity, unspecified DysonSobiaew, DO 01/27/2019 F43.0 Acute stress reaction DysonHarvey, DO 01/27/2019 Z68.34 Body mass index (BMI) 34.0-34.9, adult Dyson, Harvey, DO 01/27/2019 R51 Headache Dyson, Harvey, DO 01/27/2019 G47.00 Insomnia, unspecified Dyson, Harvey, DO 01/27/2019 R53.83 Other fatigue Dyson, Harvey, DO 01/27/2019 F10.20 Alcohol dependence, uncomplicated Dyson, Harvey, DO 01/27/2019 F32.1 Major depressive disorder, single episode, Dyson, Harvey, DO moderate 01/07/2019 F43.10 Post-traumatic stress disorder, unspecified Dyson, Harvey , DO 01/07/2019 F43.0 Acute stress reaction Dyson, Harvey, DO 01/07/2019 E66.9 Obesity, unspecified Dyson, Harvey, DO 01/07/2019 R51 Headache Dyson, Harvey, DO 01/07/2019 G47.00 Insomnia, unspecified Dyson, Harvey, DO 01/07/2019 Z68.35 Body mass index (BMI) 35.0-35.9, adult Dyson, Harvey, DO 01/07/2019 F10.20 Alcohol dependence, uncomplicated Dyson, Harvey, DO 01/07/2019 F32.1 Major depressive disorder, single episode, Dyson, Harvey, DO moderate 11/26/2018 F43.10 Post-traumatic stress disorder, unspecified Dyson, Harvey , DO 11/26/2018 E66.9 Obesity, unspecified Dyson, Harvey, DO 11/26/2018 F43.0 Acute stress reaction Dyson, Harvey, DO 11/26/2018 Z68.34 Body mass index (BMI) 34.0-34.9, adult Dyson, Harvey, DO 11/26/2018 R51 Headache Dyson, Harvey, DO 11/26/2018 G47.00 Insomnia, unspecified Dyson, Harvey, DO 11/26/2018 R53.83 Other fatigue Dyson, Harvey, DO 11/26/2018 F10.20 Alcohol dependence, uncomplicated Dyson, Harvey, DO 11/26/2018 F32.1 Major depressive disorder, single episode, Dyson, Harvey, DO moderate Plan of Treatment Future Appointment(s):04/29/2019 1:30 pm - Harvey Dyson DO at [facility]03/26/2019 - Harvey Dyson DOF43.10 Post-traumatic stress disorder, jlyundvmfgdS49.0 Acute stress haqxcknuF43.9 Obesity, unspecifiedComments:The patient had lost 1lbs of body weight since the previous visit and he currently weighs around 234lbs. A detailed discussion was had with the patient regarding his body weight and BMI. He was made aware about the health hazards of obesity including diabetes, hypertension, cardiac diseases, and other various risk factors. He was advised to maintain a healthy and low-calorie diet and a regular exercise regimen which will help him lose weight.G47.00 Insomnia, djztbktnsomD41.83 Other mgpwbhtD32.35 Body mass index (BMI) 35.0-35.9, adultComments:BMI is at 35.1. The patient should try to lose weight with low- calorie diet and exercises. We willcontinue to monitor weight and BMI periodically.F10.20 Alcohol dependence, wbrmfohewvuxcN84.1 Major depressive disorder, single episode, kzcfdpzhJ61.209 Tension-type headache, unspecified, not intractable Functional Status Description No Information Available Mental Status Description No Information Available Referrals Description No Information Available
[2019-04-28 11:22] VITALS: BP 141/86
--- NOTE | 2019-04-28 11:40 | UC ---
Ear Complaint HPI - HPI Summary HPI Summary: 33 yo male with sore throat and congestion x 5-6 days now with left ear ache feverish chills no n/v/d - History of Current Complaint Chief Complaint: UCGeneralIllness Stated Complaint: FEVER,ST,LT EAR PAIN Time Seen by Provider: 04/28/19 11:33 Hx Obtained From: Patient Onset/Duration: Sudden Onset Severity Initially: Mild Severity Currently: Moderate Pain Intensity: 2 Pain Scale Used: 0-10 Numeric Alleviating Factors: Nothing Associated Signs/Symptoms: Positive: URI Symptoms - Allergies/Home Medications Allergies/Adverse Reactions: Allergies Allergy/AdvReac Type Severity Reaction Status Date / Time cefaclor [From [facility]] Allergy Unknown Verified 04/28/19 11:22 Reaction Details Home Medications: Home Medications D-Methorphan/PE/Acetaminophen [Gnp Day Time Cold/Flu Rel] 1 liq PO Q6HR PRN [History Confirmed 04/28/19] PMH/Surg Hx/FS Hx/Imm Hx Previously Healthy: Yes Other History Of: Negative For: HIV, Hepatitis B, Hepatitis C - Surgical History Surgical History: Yes Surgery Procedure, Year, and Place: wisdom teeth removal - Family History Known Family History: Positive: Cardiac Disease, Hypertension, Diabetes - Social History Alcohol Use: Occasionally Alcohol Amount: 4-8 drinks 2-3 times a week Substance Use Type: None Smoking Status (MU): Current Some Day Smoker Type: Smokeless Tobacco Amount Used/How Often: CHEWS Length of Time of Smoking/Using Tobacco: 10 YRS Have You Smoked in the Last Year: Yes - chews - Immunization History Most Recent Influenza Vaccination: Fall 2014 Most Recent Tetanus Shot: UNKNOWN Review of Systems All Other Systems Reviewed And Are Negative: Yes Constitutional: Positive: Fever, Chills Skin: Positive: Negative Eyes: Positive: Negative ENT: Positive: Sore Throat, Ear Ache, Nasal Discharge, Sinus Congestion Respiratory: Positive: Cough Cardiovascular: Positive: Negative Gastrointestinal: Positive: Negative Genitourinary: Positive: Negative Motor: Positive: Negative Neurovascular: Positive: Negative Musculoskeletal: Positive: Negative Neurological: Positive: Negative Psychological: Positive: Negative Physical Exam Triage Information Reviewed: Yes Appearance: Well-Appearing, No Pain Distress, Well-Nourished Vital Signs: Initial Vital Signs Temp 98.5 F 04/28/19 11:17 Pulse 74 04/28/19 11:17 Resp 16 04/28/19 11:17 BP 141/86 04/28/19 11:17 Pulse Ox 100 04/28/19 11:17 Vital Signs Reviewed: Yes Eyes: Positive: Conjunctiva Clear ENT: Positive: Nasal congestion, Nasal drainage, TM bulging - L, TM dull - L, TM red - L, Tonsillar swelling, Uvula midline. Negative: Hearing grossly normal - decreased L, Tonsillar exudate, Trismus, Muffled voice, Hoarse voice, Sinus tenderness Neck: Positive: Supple, Enlarged Nodes @ - ant cerv Respiratory: Positive: Lungs clear, Normal breath sounds, No respiratory distress, No accessory muscle use Cardiovascular: Positive: RRR, No Murmur Musculoskeletal: Positive: ROM Intact, No Edema Neurological: Positive: Alert Psychological Exam: Normal Skin Exam: Normal Ear Complaint Course/Dx - Differential Dx/Diagnosis Provider Diagnosis: Left otitis media, Sore throat, Elevated BP without diagnosis of hypertension Discharge ED - Sign-Out/Discharge Documenting (check all that apply): Patient Departure All imaging exams completed and their final reports reviewed: No Studies - Discharge Plan Condition: Stable Disposition: HOME Prescriptions: Amoxicillin PO (*) [Amoxicillin 875 MG (*)] 875 mg PO BID #20 tab Patient Education Materials: Ear Infection (ED) Referrals: Harvey Dyson DO [Primary Care Provider] - If Needed Additional Instructions: BP recheck in 2-20 weeks - Billing Disposition and Condition Condition: STABLE Disposition: Home
== END 2019-04-28 11:45 | disposition home or self-care (01) ==
LOC: UCCORT 10:53
DX: J02.9 Acute pharyngitis, unspecified (principal); H66.92 Otitis media, unspecified, left ear; R03.0 Elevated blood-pressure reading, without diagnosis of hypertension; R09.81 Nasal congestion; F17.290 Nicotine dependence, other tobacco product, uncomplicated; Z88.1 Allergy status to other antibiotic agents
CPT/HCPCS: 87651; 99212; G0463